=== PATIENT | male | born 1975 | race Caucasian/White ===

== ENCOUNTER 2024-02-12 08:49 | Emergency (ER) | payer BC ==
[~2024-02-12] VITALS: Ht 175.3 cm; Wt 95.5 kg
[2024-02-12] MEDS ORDERED: iohexol 300mg/ml 100ml inj. ONE (09:13)
[2024-02-12] MEDS: normal saline 1000ML IV soln IVB ONE (09:16)
[2024-02-12] MEDS: ondansetron/PF 4mg/2ml inj IV ONE (09:16)
[2024-02-12] MEDS: morphine 4 MG/ML inj SYRINge IV ONE (09:16)
[2024-02-12] MEDS ORDERED: NO HOME MEDS (09:39)
[2024-02-12 10:03] LABS: BASOPHILS % (AUTO) 0.5 % (0-1); EOSINOPHILS # (AUTO) 0.1 X10'3 (0-0.9); EOSINOPHILS % (AUTO) 1.2 % (0-6); HEMATOCRIT 46.6 % (42.0-52.0); HEMOGLOBIN 15.6 g/dl (14.0-17.9); LYMPHOCYTES # (AUTO) 1.6 X10'3 (1.1-4.8); LYMPHOCYTES % (AUTO) 24.2 % (21-51); MEAN CORPUSCULAR HEMOGLOBIN 31.2 PG (27.0-31.0); MEAN CORPUSCULAR HGB CONC 33.5 g/dL (33.0-36.5); MEAN PLATELET VOLUME 9.1 FL (7.4-10.4); MONOCYTES # (AUTO) 0.5 X10'3 (0-0.9); NEUTROPHILS # (AUTO) 4.3 X10'3 (1.8-7.7); NEUTROPHILS % (AUTO) 66.1 % (42-75); PLATELET COUNT 263 X10'3 (140-440); RED BLOOD COUNT 5.01 X10'6 (4.70-6.10); RED CELL DISTRIBUTION WIDTH 13.8 % (11.5-14.5); WHITE BLOOD COUNT 6.5 X10'3 (4.5-11.0)
[2024-02-12] MEDS: ketorolac trometh. 30mg/ml inj. IV ONE (10:04)
[2024-02-12 10:05] LABS: ALANINE AMINOTRANSFERASE 35 U/L (12-78); ALBUMIN 4.4 G/DL (3.4-5.0); ALBUMIN/GLOBULIN RATIO 1.1 (1.1-1.5); ALKALINE PHOSPHATASE 73 IU/L (46-116); ANION GAP 11 (8-16); ASPARTATE AMINO TRANSFERASE 21 U/L (10-37); BILIRUBIN,TOTAL 1.6 MG/DL (0.1-1.0); BLOOD UREA NITROGEN 11 MG/DL (7-18); CALCIUM 9.6 MG/DL (8.5-10.1); CHLORIDE 103 MMOL/L (99-107); GLUCOSE 113 MG/DL (70-104); POTASSIUM 4.1 MMOL/L (3.5-5.1); SODIUM 139 MMOL/L (135-145); TOTAL CARBON DIOXIDE 24.8 MMOL/L (24-32); TOTAL PROTEIN 8.4 G/DL (6.4-8.2); eCRCL 92 ML/MIN; eGFR 80 ML/MIN
[2024-02-12] MEDS ORDERED: OXYC-138 PO (10:37)
[2024-02-12 11:06] VITALS: BP 119/76; PULSE 62; RESP 16; TEMP 98; O2SAT 98
== END 2024-02-12 11:52 | disposition home or self-care (01) ==
LOC: ER 08:50
DX: S20.212A Contusion of left front wall of thorax, initial encounter (principal); Z79.899 Other long term (current) drug therapy; W18.39XA Other fall on same level, initial encounter; Y93.89 Activity, other specified; Y92.89 Other specified places as the place of occurrence of the external cause; Y99.8 Other external cause status
CPT/HCPCS: 36415; 71045; 71260; 74177; 80053; 85025; 96361; 96374; 96375; 99285; J1885; J2270; J2405; J7030; Q9967